=== PATIENT | male | born 1960 | race Caucasian/White ===

== ENCOUNTER 2023-04-13 10:03 | Outpatient (CLI) | payer OTHER, SELFPAY | END 2023-04-13 10:04 | disposition home or self-care (01) | PROVIDERS: PCP Family Medicine; Visit Provider Family Medicine | DX: Z00.00 Encounter for general adult medical examination without abnormal findings (principal); E78.2 Mixed hyperlipidemia; Z12.5 Encounter for screening for malignant neoplasm of prostate | CPT/HCPCS: 80048; 80061; 84153; 84460 ==

== ENCOUNTER 2024-07-21 10:30 | Outpatient (CLI) | payer MEDICARE, SELFPAY | END 2024-07-21 10:31 | disposition home or self-care (01) | PROVIDERS: PCP Family Medicine; Visit Provider Family Medicine | DX: Z00.00 Encounter for general adult medical examination without abnormal findings (principal); E78.2 Mixed hyperlipidemia; G62.9 Polyneuropathy, unspecified; Z85.46 Personal history of malignant neoplasm of prostate | CPT/HCPCS: 80048; 80061; 82607; 84153; 84443; 84460; 85025 ==

== ENCOUNTER 2025-09-01 10:31 | Outpatient (CLI) | payer MEDICARE, SELFPAY | END 2025-09-01 10:32 | disposition home or self-care (01) | PROVIDERS: PCP Family Medicine; Visit Provider Family Medicine | DX: E78.2 Mixed hyperlipidemia (principal); N40.0 Benign prostatic hyperplasia without lower urinary tract symptoms; Z13.9 Encounter for screening, unspecified | CPT/HCPCS: 80048; 80061; 84460; G0103 ==